=== PATIENT | female | born 1980 | race Caucasian/White ===

== ENCOUNTER 2019-07-10 02:24 | Emergency (ER) | payer BC, OTHER ==
[~2019-07-10] VITALS: Ht 157.5 cm; Wt 72.6 kg
[2019-07-10 02:58] VITALS: BP_SYST 126
--- NOTE | 2019-07-10 03:04 | NUR ---
Patient triaged and placed in waiting room. VSS and patient appears in no acute distress at this time. Accompanied by , awaiting available bed, and MD notified of need for MSE.
--- NOTE | 2019-07-10 03:10 | NUR ---
Note undone in EDM - 07/10/19 at 0429 by [email or web address] Patient brought in complaining of right sided back pain starting at 07/09/19 2300 and took Ibuprofen 800mg. Reports massaged the area and she fell asleep. Reports waking up around 0000 with pain radiating to epigastric region. Patient denies any nase, vomiting or diarrhea. No other complaints/injuries per patient or as noted. Pain 05/20. No other complaints/injuries per patient or as noted. Will continue to monitor.
--- NOTE | 2019-07-10 03:16 | NUR ---
Patient to Radiology for abdominal ultrasound.
--- NOTE | 2019-07-10 04:28 | NUR ---
Patient to ER bed 04 to gown for evaluation. Side rails up. Report given to MANDI Peterson
--- NOTE | 2019-07-10 04:29 | NUR ---
Patient brought in complaining of right sided back pain starting at 07/09/19 2300 and took Ibuprofen 800mg. Reports massaged the area and she fell asleep. Reports waking up around 0000 with pain radiating to epigastric region. Patient denies any nase, vomiting or diarrhea. No other complaints/injuries per patient or as noted. Pain 05/20. No other complaints/injuries per patient or as noted. Will continue to monitor.
--- NOTE | 2019-07-10 04:46 | NUR ---
ER Dr. POWELL at bedside examining patient.
--- NOTE | 2019-07-10 05:00 | NUR ---
# 20 gauge angiocath placed to LAC. Use of asceptic technique. Opsite placed over site. Blood return noted. Blood for lab drawn from site. Flushed with 10 cc of normal saline. No evidence of infiltration noted. Patient tolerated well.
[2019-07-10 05:14] LABS: BASOPHILS % (AUTO) 0.3 % (0.0-2.0); EOSINOPHILS # (AUTO) 0.1 K/uL (0.0-0.4); HEMATOCRIT 40.1 % (36-48); HEMOGLOBIN 13.4 g/dL (12.0-16.0); LYMPHOCYTES # (AUTO) 1.3 K/uL (1.0-5.5); LYMPHOCYTES % (AUTO) 12.9 % (20.5-51.5); MEAN CORPUSCULAR HEMOGLOBIN 30 pg (27-31); MEAN CORPUSCULAR HGB CONC 33 % (32-36); MEAN CORPUSCULAR VOLUME 89 fL (79.0-98.0); MONOCYTES # (AUTO) 0.5 K/uL (0.0-1.0); MONOCYTES % (AUTO) 4.9 % (1.7-9.3); NEUTROPHILS # (AUTO) 8.4 K/uL (1.8-7.7); NEUTROPHILS % (AUTO) 80.9 % (40.0-70.0); PLATELET COUNT (AUTO) 232 K/uL (130-430); RED BLOOD CELL COUNT(AUTO) 4.53 MIL/uL (4.2-6.2); RED CELL DISTRIBUTION WIDTH 13.7 % (9.0-15.0); WHITE BLOOD COUNT (AUTO) 10.4 K/uL (4.8-10.8)
[2019-07-10 05:30] LABS: CALCIUM 8.2 mg/dL (8.4-11.0); CREATININE 0.74 mg/dL (0.55-1.30); POTASSIUM 3.7 mmol/L (3.5-5.1)
[2019-07-10 05:31] LABS: PROTHROMBIN TIME 10.2 SECS (9.5-12.5)
[2019-07-10 05:35] LABS: ALBUMIN 3.3 g/dL (3.4-4.8); TOTAL BILIRUBIN 0.7 mg/dL (0.0-1.0)
[2019-07-10 06:07] LABS: BILIRUBIN,URINE NEGATIVE (NEGATIVE); BLOOD, URINE 2+ (NEGATIVE); CLARITY/URINE CLEAR (CLEAR); COLOR,URINE YELLOW (YELLOW); GLUCOSE,URINE NEGATIVE (NEGATIVE); KETONES,URINE NEGATIVE (NEGATIVE); LEUKOCYTE ESTERASE ,URINE NEGATIVE (NEGATIVE); NITRITE, URINE NEGATIVE (NEGATIVE); PROTEIN URINE NEGATIVE (NEGATIVE); UROBILINOGEN,URINE 0.2 (0.2-1.0)
[2019-07-10 06:19] LABS: BACTERIA,URINE FEW /HPF (None Seen); WBC,URINE 0-3 /HPF (0-3)
[2019-07-10 06:54] VITALS: BP_SYST 131
--- NOTE | 2019-07-10 06:54 | NUR ---
Patient given written and verbal discharge instructions and verbalizes understanding. ER MD discussed with patient the results and treatment provided. Patient in stable condition. ID arm band removed. IV catheter removed intact and dressing applied, no active bleeding. Rx of norco given. Patient educated on pain management and to follow up with PMD. Pain Scale 3/10. Opportunity for questions provided and answered. Medication side effect fact sheet provided.
== END 2019-07-10 06:54 | disposition home or self-care (01) ==
LOC: SED 02:24
DX: K80.20 Calculus of gallbladder without cholecystitis without obstruction (principal); R10.13 Epigastric pain
CPT/HCPCS: 36415; 76700-TC; 80053; 81000-TC; 81025; 82150-TC; 83690-TC; 85025; 85610-TC; 99284